=== PATIENT | female | born 1945 | race Asian ===

== ENCOUNTER 2021-02-02 16:09 | Emergency (ER) | payer OTHER, MEDICARE ==
[~2021-02-02] VITALS: Ht 147.3 cm; Wt 49.0 kg
--- NOTE | 2021-02-02 16:21 | NUR ---
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 CHART GIVEN TO DR LOUISE.
--- NOTE | 2021-02-02 16:25 | NUR ---
CC OF DIZZYNESS SINCE YESTERDAY AND FEELS LIKE THE ROOM IS SPINNING. PT STATES VISION HAS ALSO BEEN BLURRY. FAMILY AT BEDSIDE
[2021-02-02] MEDS ORDERED: MECLIZINE CHEWABLE 25 MG TAB ONE (16:55)
[2021-02-02 16:58] LABS: BASOPHILS % (AUTO) 1 % (0-1); EOSINOPHILS % (AUTO) 1 % (1-7); LYMPHOCYTES % (AUTO) 23 % (22-44); MEAN CORPUSCULAR HEMOGLOBIN 31.4 pg (27.0-34.8); MEAN CORPUSCULAR HGB CONC 33.4 g/dL (32.4-35.8); MEAN PLATELET VOLUME 9.6 fL (7.4-10.4); MONOCYTES % (AUTO) 6 % (2-9); NEUTROPHILS % (AUTO) 69 % (42-75); PLATELET COUNT 164 x10^3/uL (130-400); RED BLOOD COUNT 4.65 x10^6/uL (3.82-5.3)
[2021-02-02 16:59] LABS: MD NO
[2021-02-02] MEDS ORDERED: MECLIZINE CHEWABLE 25 MG TAB PO ONE (17:00)
[2021-02-02 17:05] LABS: ALBUMIN 4.2 g/dL (3.4-5.0); ANION GAP 8 mmol/L (5-15); CALCIUM 9.8 mg/dL (8.5-10.1); CHLORIDE 104 mmol/L (98-107); CREATININE 1.44 mg/dL (0.55-1.02)
[2021-02-02 18:01] VITALS: BP 117/66
--- NOTE | 2021-02-02 18:01 | NUR ---
Patient given discharge instructions and prescription and they have confirmed that they understand the instructions. Patient stable and ambulatory with steady gait from ED.
== END 2021-02-02 18:02 | disposition home or self-care (01) ==
LOC: ED 17:23
DX: H81.12 Benign paroxysmal vertigo, left ear (principal); I10 Essential (primary) hypertension
CPT/HCPCS: 36415; 70450; 80048; 82040; 85025; 93005; 99285